=== PATIENT | female | born 1975 | race Caucasian/White ===

== ENCOUNTER 2019-03-28 11:24 | Emergency (ER) | payer OTHER, SELFPAY ==
[2019-03-28 11:25] VITALS: BP 108/75; PULSE 119; RESP 18; TEMP 36.6; O2SAT 98; BMI 27.3
--- NOTE | 2019-03-28 11:35 | RAD_ITS ---
STUDY: X-RAY CHEST REASON FOR EXAM: Female, 44 years old. Cough and chest pain. TECHNIQUE: Single AP portable view of the chest. COMPARISON: Comparison is made with prior study dated December 22, 2015. FINDINGS: Hyperinflation. Scattered calcified granulomas. No acute abnormality is seen. There is no demonstrated pleural abnormality. Normal size heart. Normal mediastinum and donna. Normal visualized pulmonary arteries. Normal visualized aortic arch and descending thoracic aorta. Normal visualized thoracic spine. Prior fusion of the lower cervical spine. Normal visualized ribs, clavicles, and shoulders. There is no demonstrated abnormality of the visualized soft tissue structures of the upper abdomen. RAD/Chest 1 View (Portable) IMPRESSION: Hyperinflation. No acute abnormality is seen. Electronically Signed: Daryl Bauer, at 12:32 EDT , Service support ,
--- NOTE | 2019-03-28 11:44 | ED.VIS.GEN ---
History of Present Illness Chief Complaint: Chest Pain Informant: Patient Onset: Days Context: Gradual Onset Timing: Continuous Current Severity: Moderate Maximum Severity: Severe Narrative: The patient presents to the emergency department with midepigastric pain into her chest. The patient states symptoms began Thursday morning. She states she has sharp pain just in her epigastric area that radiated up into her chest. She states it would come in waves but never fully go away. She was having a difficult time eating because of the pain. She was nauseated without vomiting. She states that she try to go to work yesterday, but was feeling short of breath because of the pain. The pain is not fully gone away. States is better today, but she is still having it. She does state that she drinks alcohol daily but has no history of pancreatitis. She denies any history of coronary vascular disease. She denies any fevers or chills. Prior similar symptoms: No Recent Illness/Hospitalization: No Past Medical History - Allergies and Home Meds Allergies/Adverse Reactions: Allergies hydrocodone Adverse Reaction (Verified 03/28/19 11:28) Upset Stomach morphine Adverse Reaction (Verified 03/28/19 11:28) Itching Penicillins [PCN] Adverse Reaction (Verified 03/28/19 11:28) Unknown Primary Care Physician: Deonte Sesay MD [Primary Care Provider] - Prior records reviewed: Yes Surgical History: no surgical history, appendectomy, cholecystectomy, hysterectomy Smoking Status: Current every day smoker Alcohol: Occasional Drugs: None Review of Systems General: Denies: Chills, Fever, Sweats Eyes: Denies: Visual changes - bilaterally, Diplopia ENT: Denies: Rhinorrhea, Sore throat Cardiovascular: Reports: Chest pain. Denies: Palpitations Respiratory: Reports: Dyspnea. Denies: Cough, Dyspnea on exertion Gastrointestinal: Reports: Abdominal pain, Nausea. Denies: Vomiting, Diarrhea, Melena, Hematochezia Genitourinary: Denies: Dysuria, Hematuria, Frequency Musculoskeletal: Denies: Back pain, Extremity Pain Skin: Denies: Rash, Wounds Neurological: Denies: Headache, Weakness, Numbness Physical Exam Vital Signs/Narrative: Vital Signs Temp Pulse Resp BP Pulse Ox 03/28/19 11:25 98 F 119 H 18 108/75 98 Inital Vital Signs reviewed: Yes General: Well nourished, Well developed, No Acute Distress Head: Normocephalic, Atraumatic Eyes: Perrl, EOMI ENT: Moist mucous membranes, No rhinorrhea Neck: Supple, Nontender Cardiovascular: Regular rate, Regular rhythm, No murmurs Respiratory: No distress, CTA bilaterally, Chest nontender Abdomen: Soft, Nondistended, Normal bowel sounds, No masses, Tender. Negative for: Guarding, Rebound tenderness Back: Nontender, Normal Inspection Extremities: Nontender, No edema Skin: Normal color, No rash Neurological: Alert, Oriented x3, Cranial nerves II-XII grossly intact, Normal Strength, Normal Sensation Psychological: Normal affect, Normal Mood Diagnostic/Tx/Re-eval Chest X-Ray - ED: 1 View, Normal, Heart, Chronic Changes, No Infiltrates - Rhythm Strip Rhythm Strip: Sinus Tach Rate: 107 Ectopy: None - EKG Initial EKG Interpretation: No Acute Injury Pattern, Sinus Tachycardia Prior: Unchanged - Medical Decision Making Clinical Impression(s) from Imaging Studies Chest X-Ray 03/28/19 11:35 IMPRESSION: Hyperinflation. No acute abnormality is seen. Electronically Signed: Daryl Bauer, at 12:32 EDT , Service support , Chest CTA 03/28/19 12:13 IMPRESSION: There is no evidence of pulmonary embolism. Mild degree of emphysematous change in the upper lobes. Increased markings at the lung bases suggestive of atelectasis. Calcified granuloma in the right lower lobe and possibly noncalcified granuloma in the right lower lobe. Electronically Signed: Daryl Bauer, at 13:15 EDT , Service support , Abnormal Lab Results 03/28/19 03/28/19 03/28/19 11:45 11:45 12:00 WBC 10.1 RBC 4.43 Hgb 14.8 Hct 43.4 MCV 98.0 MCH 33.4 H MCHC 34.1 RDW Std Deviation 46.2 H RDW Coeff of Stacey 12.9 Plt Count 425 MPV 8.7 Immature Gran % (Auto) 0.800 Neut % (Auto) 64.5 Lymph % (Auto) 25.0 [place] % (Auto) 6.7 Eos % (Auto) 2.4 Baso % (Auto) 0.6 Absolute Neuts (auto) 6.5 Absolute Lymphs (auto) 2.53 Nucleated RBC % 0 Sodium 141 Potassium 3.5 Chloride 115 H Carbon Dioxide 21.0 Anion Gap 5 BUN 8 Creatinine 0.85 Estim Creat Clear Calc 59.40 Est GFR (MDRD) Af Amer 93 Est GFR (MDRD) Non-Af 77 BUN/Creatinine Ratio 9.4 L Glucose 92 Calcium 8.6 Total Bilirubin 0.50 AST 9 L ALT 12 L Alkaline Phosphatase 75 Troponin I < 0.015 Total Protein 7.3 Albumin 3.6 Globulin 3.7 Albumin/Globulin Ratio 1.0 Lipase 90 Urine Color Yellow Urine Clarity Clear Urine pH 8.0 Ur Specific [place] 1.010 Urine Protein Negative Urine Glucose (UA) Normal Urine Ketones Negative Urine Occult Blood 25 H Urine Nitrite Negative Urine Bilirubin Negative Urine Urobilinogen Normal Ur Leukocyte Esterase Negative Urine RBC 0-5 SEEN Urine WBC 0 SEEN Ur Squamous Epith Cells 0-5 SEEN Urine Bacteria 0 SEEN Urine Mucus 0 SEEN The patient presents to the emergency department with substernal chest pain. It is not radiating. She also felt mildly short of breath. EKG was obtained patient arrival. Demonstrated sinus tachycardia. There is no acute ischemic change. The patient has had the symptoms constantly for the past 2 days. It is made worse with food. However, she was persistently tachycardic. The patient's pain was addressed and she was feeling improved. Her cardiac enzymes are normal. With constant pain for 2 days, I do feel this is effectively rule her out for acute coronary syndrome. I did obtain a CTA of the patient's chest. There is no evidence of pulmonary embolus or other dangerous process. Labs are unremarkable. Patient continues rest comfortably. I did review options with the patient. She wants to attempt outpatient therapy and I feel this is reasonable. Aside from smoking, she really has no risk factor for coronary vascular disease. I am going to treat her with Carafate and antiemetics. She will be discharged home. Impression 1. Chest pain 2. Gastritis ED Disposition - Plan for ED Patient: Instructions: CHEST PAIN, Uncertain Cause Prescriptions: Dicyclomine HCl [Bentyl] 20 mg PO TIDAC #20 cap Prescription Printed Sucralfate [Carafate] 1 gm PO 4X/DAY #60 tab Prescription Printed Ondansetron [Zofran Odt] 4 mg PO Q8H PRN PRN #10 tab PRN Reason: Nausea Prescription Printed Referrals: Deonte Sesay MD [Primary Care Provider] -
[2019-03-28] MEDS: 0.9% Normal Saline 1,000 ML 1000 ML IV (11:50)
[2019-03-28] MEDS: Ondansetron 4 MG/2 ML Vial IV (11:50)
[2019-03-28] MEDS: HYDROmorphone 1 MG/ML Syringe IV (11:50)
[2019-03-28 11:54] LABS: Absolute Lymphocyte Count 2.53 X10^3/uL (0.83-4.51); Absolute Neutrophil Count 6.5 X10^3/uL (2.0-7.7); Basophil# 0.06 X10^3/uL; Basophil% 0.6 % (0-1); Eosinophil# 0.24 X10^3/uL; Eosinophils% 2.4 % (0-5); Hematocrit 43.4 % (37-47); Hemoglobin 14.8 g/dL (12.0-15.0); Lymphocyte # 2.53 X10^3/ul (4.0); Mean Corp Hgb Conc 34.1 g/dL (32-36); Mean Corpuscular Hgb 33.4 pg (27.0-32.0); Mean Platelet Vol. 8.7 fl (6.2-12.0); Monocyte# 0.68 X10^3/uL; Monocyte% 6.7 % (0-10); NRBC Flagged by Analyzer 0 % (0-5); Neutrophil # 6.51 X10^3/uL (2.7-7.7); Neutrophil % 64.5 % (47-70); Platelet Count 425 K/mm3 (150-450); RBC Distribution Width CV 12.9 % (11.6-14.6); RBC Distribution Width SD 46.2 fl (35.1-43.9); Red Blood Count 4.43 M/mm3 (4.2-5.4); White Blood Count 10.1 K/mm3 (4.4-11.0)
[2019-03-28 12:07] VITALS: BP 114/93; PULSE 106; RESP 29; O2SAT 99
[2019-03-28 12:11] LABS: AST(SGOT) 9 U/L (15-37); Alanine Aminotransfer ALT/SGPT 12 U/L (13-56); Albumin, Serum 3.6 g/dL (3.2-5.0); Alkaline Phosphatase 75 U/L (45-117); Anion Gap 5 (5-15); BUN 8 mg/dL (7-18); BUN/Creat Ratio 9.4 RATIO (10-20); Calcium,Total 8.6 mg/dL (8.5-10.1); Chloride 115 mmol/L (98-107); Creatinine, Serum 0.85 mg/dL (0.55-1.02); EST Glomerular Filtration Rate 77 mL/min (>60); Est Glom Filt Rate - Afr Amer 93 mL/min (>60); Globulin 3.7 g/dL (2.2-4.2); Glucose 92 mg/dL (74-106); Lipase 90 U/L (73-393); Potassium 3.5 mmol/L (3.5-5.1); Protein, Total 7.3 g/dL (6.4-8.2); Sodium Level 141 mmol/L (136-145)
--- NOTE | 2019-03-28 12:13 | CT_ITS ---
STUDY: CTA CHEST REASON FOR EXAM: Female, 44 years old. Sharp, stabbing chest pains. RADIATION DOSAGE (If Supplied By Facility): CTDIvol = ( 4.79 ) mGy, DLP = ( 158.04 ) mGycm TECHNIQUE: The examination was performed with the intravenous administration of 75 IV Isovue 370. Post-processing of the angiographic images was performed, with multiplanar reformation and 3D reconstruction. Individualized dose optimization techniques were used for this CT. COMPARISON: None. FINDINGS: Normal enhancement of the main pulmonary artery and right and left pulmonary arteries. Normal enhancement of the bilateral peripheral pulmonary arteries. There is no demonstrated pulmonary embolism. Normal thoracic aorta and visualized great vessels. There is no demonstrated aortic dissection. Normal heart and pericardium. Normal mediastinum. Normal hilar regions. Normal visualized trachea and bronchi. The lungs are well expanded. Mild degree of emphysematous changes in the upper lobes. Mild degree of increased linear markings at the lung bases suggestive of a linear atelectasis. There is a 5 mm noncalcified nodule in the lateral peripheral aspect of the right lower lobe as seen on axial image #86. This may represent a noncalcified granuloma. 5 mm calcified granuloma in the superior segment of the right lower lobe. Normal pleura. Normal chest wall structures. There are degenerative changes of thoracic spine. Thickening of both adrenal glands suggestive of hyperplasia. Small hiatal hernia. CT/CTA Chest W/WO Contrast IMPRESSION: There is no evidence of pulmonary embolism. Mild degree of emphysematous change in the upper lobes. Increased markings at the lung bases suggestive of atelectasis. Calcified granuloma in the right lower lobe and possibly noncalcified granuloma in the right lower lobe. Electronically Signed: Daryl Bauer, at 13:15 EDT , Service support ,
[2019-03-28 12:20] LABS: Bacteria 0 SEEN /hpf (None Seen); Mucous, Urine 0 SEEN /hpf (<or=2+); White Blood Cells 0 SEEN /hpf (0-5)
[2019-03-28 12:28] LABS: Color, Urine Yellow (Yellow); Glucose, Dipstick Normal (Normal); Ketone-Dipstick Negative (Negative); Leukocyte Esterase-Dipstick Negative /ul (Negative); Nitrite-Dipstick Negative (Negative); Occult Blood-Urine 25 /ul (Negative); Protein-Dipstick Negative (Negative); Urine Bilirubin Dipstick Negative (Negative); Urine Clarity Clear (Clear); Urine Urobilinogen Normal (Normal)
[2019-03-28 12:38] LABS: Red Blood Cells-Urine 0-5 SEEN /hpf (0-5); Squamous Epithelial Cells - UA 0-5 SEEN /hpf (5-10)
--- NOTE | 2019-03-28 12:42 | EKG12_ITS ---
Test Reason : CP Blood Pressure : / mmHG Vent. Rate : 107 BPM Atrial Rate : 107 BPM P-R Int : 128 ms QRS Dur : 084 ms QT Int : 358 ms P-R-T Axes : 078 030 050 degrees QTc Int : 477 ms Sinus tachycardia Indeterminate axis Low Voltage QRS (Limb Leads) Borderline ECG Confirmed by ELLY AMADO, MARCOS ([id number]), online editor MIKE SMITH ([id number]) on 03/30/2019 8:56:54 AM Referred By: MERYL/AMAIRANI Confirmed By:MARCOS SANABRIA MD
== END 2019-03-28 14:21 | disposition home or self-care (01) ==
LOC: ED 11:50
PROVIDERS: Emergency Provider Emergency Medicine; Family Provider Orthopaedic Surgery; PCP Orthopaedic Surgery
DX: R07.2 Precordial pain (principal); K29.70 Gastritis, unspecified, without bleeding; R00.0 Tachycardia, unspecified; F17.200 Nicotine dependence, unspecified, uncomplicated; Z79.899 Other long term (current) drug therapy; Z88.5 Allergy status to narcotic agent; Z88.0 Allergy status to penicillin
CPT/HCPCS: 71045; 71275; 80053; 81001; 83690; 84484; 85025; 93005; 96361; 96374; 96375; 99285; J7030; Q9967; A4216; J2405

== ENCOUNTER → 2019-05-12 10:08 | Outpatient (CLI) | payer OTHER, SELFPAY ==
[2019-05-10 14:39] VITALS: BMI 24.0
[2019-05-12 12:49] LABS: T4 Free Direct 1.01 ng/dL (0.76-1.46); Thyroid Stim Hormone (TSH) 1.16 uIU/mL (0.358-3.74)
== END ==
PROVIDERS: Family Provider Orthopaedic Surgery; PCP Internal Medicine; Visit Provider Internal Medicine
DX: R00.0 Tachycardia, unspecified (principal)
CPT/HCPCS: 36415; 84439; 84443

== ENCOUNTER → 2019-05-19 11:12 | Outpatient (CLI) | payer OTHER, SELFPAY ==
[2019-05-16 11:14] VITALS: BMI 24.2
== END ==
PROVIDERS: Family Provider Internal Medicine; PCP Internal Medicine; Referring Provider Specialist; Visit Provider Specialist
DX: R00.2 Palpitations (principal)
CPT/HCPCS: 93225; 93226

== ENCOUNTER → 2019-05-26 09:54 | Outpatient (CLI) | payer OTHER, SELFPAY ==
[2019-05-16 11:14] VITALS: BMI 24.2
--- NOTE | 2019-05-26 09:55 | ECHOD_ITS ---
Reason For Study: CHEST PAIN Procedure This was a 2D Doppler, Color Flow transthoracic echocardiogram. The study was technically difficult. Due to poor parasternal accoustic windows. Exam performed in department. Left Ventricle Normal LV size. The estimated ejection fraction is 55 %. No evidence for diastolic dysfunction. No regional wall motion abnormalities noted. Right Ventricle Normal RV size. Normal systolic function. Atria Normal left atrium. Normal right atrium. No doppler evidence for ASD. Mitral Valve There is no mitral valve stenosis. No mitral valve insufficiency. Tricuspid Valve There is no tricuspid stenosis. Trivial tricuspid valve insufficiency. Pulmonary artery systolic pressure is 30 mmHg. Aortic Valve Trisinus/trileaflet aortic valve. There is no aortic stenosis. No aortic valve insufficiency. Pulmonic Valve There is no pulmonic valvular stenosis. No pulmonic valve insufficiency. Great Vessels Normal aortic root. Pericardium/Pleural No pericardial effusion. MMode/2D Measurements & Calculations LVIDd: 4.2 cm IVSd: 0.84 cm Ao root diam: 3.1 cm LVIDs: 3.2 cm LVPWd: 4.3 cm RVDd: 3.0 cm FS: 24.3 % LAV(MOD-bp): 31.9 ml LA A4 area: 12.0 cm2 LA dimension(2D): 2.7 cm LAV(MOD-bp) Indexed: 20.9 ml/m2 LAV(MOD-sp2): 32.0 ml LAV(MOD-sp4): 30.0 ml RA A4 area: 10.8 cm2 Time Measurements MV dec time: 0.13 sec Doppler Measurements & Calculations MV E max rj: 86.1 cm/sec Lat Peak E' Rj: 11.2 cm/sec Med Peak E' Rj: 9.9 cm/sec MV A max rj: 51.0 cm/sec E/E' lat: 7.7 E/E' med: 8.7 MV E/A: 1.7 Ao V2 max: 100.4 cm/sec LV V1 max: 83.6 cm/sec PA V2 max: 78.8 cm/sec Ao max P.0 mmHg LV V1 max P.7 mmHg TR max rj: 258.2 cm/sec TR max P.7 mmHg Interpretation Summary The estimated ejection fraction is 55 %. No evidence for diastolic dysfunction. Trivial tricuspid valve insufficiency. Pulmonary artery systolic pressure is 30 mmHg. Ordering Physician: Toni Butler Referring Physician: Toni Butler Performed By: Leonora Obregon, [facility], RVT
--- NOTE | 2019-06-02 13:41 | STRESSREP_ITS ---
Stress Test Report Date: 05/26/2019 Procedure: Exercise tolerance test Indications: Chest pain Consent: Per the patient Procedure: The patient exercised on a Devon protocol for 6 minutes achieving a peak heart rate of 162 bpm (93 % predicted maximal heart rate) with a peak blood pressure 130/70 mmHg and a peak MET capacity of approximately 7 mET's. The baseline ECG demonstrated normal sinus rhythm. The peak exercise ECG demonstrated sinus tachycardia with about half a millimeter upsloping to horizontal ST depressions in the inferior and lateral leads. [There were no cardiac dysrhythmias pretest, during exercise, or recovery]. The functional capacity was considered decreased for age. Patient had chest pain early in the recovery period which improved later in recovery. The examination was discontinued secondary to dyspnea. Impression: 1. Technically adequate (percent predicted maximal heart rate greater than 85%) exercise tolerance test 2. Stress test is positive for exercise-induced chest pain. 3. Stress test test is negative for exercise-induced EKG changes of ischemia. 4. Functional capacity is decreased for age. This note was generated with [employer] software. It may contain incorrect words, spelling, and punctuation that were not noted in checking the note before signing.
== END ==
PROVIDERS: Family Provider Internal Medicine; PCP Internal Medicine; Referring Provider Specialist; Visit Provider Specialist
DX: R07.9 Chest pain, unspecified (principal); R00.0 Tachycardia, unspecified; R00.2 Palpitations
CPT/HCPCS: 93017; 93306

== ENCOUNTER 2019-06-10 18:22 | Emergency (ER) | payer OTHER, SELFPAY ==
[2019-05-16 11:14] VITALS: BMI 24.2
[2019-06-10 18:23] VITALS: BP 112/83; PULSE 104; RESP 20; TEMP 36.6; O2SAT 95; BMI 24.3
--- NOTE | 2019-06-10 18:30 | RAD_ITS ---
STUDY: X-RAY CHEST REASON FOR EXAM: Female, 44 years old. Cough TECHNIQUE: PA and lateral COMPARISON: March 28, 2019 FINDINGS: The lungs are clear and expanded. Tiny well rounded nodule in the right lower lobe There is no demonstrated pleural abnormality. Normal size heart. Normal mediastinum and donna. Normal visualized pulmonary arteries. Normal visualized aortic arch and descending thoracic aorta. Dorsal spine demonstrates mild spondylosis. Normal visualized ribs, clavicles, and shoulders. Postop change status post cervical fusion There is no demonstrated abnormality of the visualized soft tissue structures of the upper abdomen. No significant change since prior study RAD/Chest PA and Lateral IMPRESSION: Stable appearance to tiny nodule in the right lower lobe. No acute cardiopulmonary pathology Electronically Signed: Roderick Juarez MD at 18:45 EDT , Service support ,
--- NOTE | 2019-06-10 19:35 | ED.RN ---
PT REPORTS TTHAT SHE IS TIRED OF WAITING IN THE LOBBY, AND SHE WILL SEE HER FAMILY DOCTOR NEXT WEEK. PT LEAVES WITHOUT BEING SEEN AT 1936.
[2019-06-10 19:38] VITALS: TEMP 36.6
== END 2019-06-10 20:01 | disposition left against medical advice (07) ==
LOC: ED 19:44
PROVIDERS: Emergency Provider Emergency Medicine; Family Provider Internal Medicine; PCP Internal Medicine
DX: R05 Cough (principal); Z53.21 Procedure and treatment not carried out due to patient leaving prior to being seen by health care provider
CPT/HCPCS: 71046; 99281

== ENCOUNTER → 2019-06-17 13:36 | Outpatient (CLI) | payer OTHER, SELFPAY ==
[2019-06-15 10:48] VITALS: BMI 24.4
[2019-06-17 14:44] LABS: Absolute Lymphocyte Count 2.86 X10^3/uL (0.83-4.51); Basophil# 0.06 X10^3/uL; Basophil% 0.7 % (0-1); Eosinophil# 0.17 X10^3/uL; Eosinophils% 1.9 % (0-5); Hematocrit 42.1 % (37-47); Hemoglobin 13.9 g/dL (12.0-15.0); Lymphocyte # 2.86 X10^3/ul (4.0); Lymphocyte % 32.4 % (19-41); Mean Corpuscular Hgb 32.6 pg (27.0-32.0); Mean Corpuscular Volume 98.8 fL (81-99); Mean Platelet Vol. 9.3 fl (6.2-12.0); Monocyte# 0.73 X10^3/uL; Monocyte% 8.3 % (0-10); NRBC Flagged by Analyzer 0 % (0-5); Neutrophil # 4.98 X10^3/uL (2.7-7.7); Neutrophil % 56.2 % (47-70); Platelet Count 386 K/mm3 (150-450); RBC Distribution Width CV 13.1 % (11.6-14.6); RBC Distribution Width SD 46.9 fl (35.1-43.9); Red Blood Count 4.26 M/mm3 (4.2-5.4); White Blood Count 8.8 K/mm3 (4.4-11.0)
[2019-06-17 14:47] LABS: International Normalized Ratio 1.1; Prothrombin Time (Protime)PT. 13.8 SECONDS (11.7-14.9)
[2019-06-17 14:48] LABS: Partial Thromboplast Time 28.6 Seconds (24.1-36.2)
[2019-06-17 15:12] LABS: Anion Gap 9 (5-15); BUN 14 mg/dL (7-18); BUN/Creat Ratio 18.6 RATIO (10-20); Calcium,Total 8.8 mg/dL (8.5-10.1); Chloride 110 mmol/L (98-107); Creatinine, Serum 0.75 mg/dL (0.55-1.02); EST Glomerular Filtration Rate 88 mL/min (>60); Est Glom Filt Rate - Afr Amer 107 mL/min (>60); Glucose 79 mg/dL (74-106); Potassium 3.9 mmol/L (3.5-5.1); Sodium Level 143 mmol/L (136-145)
== END ==
PROVIDERS: Family Provider Internal Medicine; PCP Internal Medicine; Referring Provider Specialist; Visit Provider Specialist
DX: R07.9 Chest pain, unspecified (principal)
CPT/HCPCS: 36415; 80048; 85025; 85610; 85730

== ENCOUNTER 2019-06-23 08:49 | Day surgery (SDC) | payer OTHER, SELFPAY ==
[2019-06-15 10:48] VITALS: BMI 24.4
[2019-06-23 09:09] VITALS: BMI 23.4
--- NOTE | 2019-06-23 09:59 | HP.PCM_ITS ---
History and Physical Date of Admission: 06/23/19 History of Present Illness Details: 05/16/2019:44-year-old female referred to us because of palpitations, chest heaviness, fatigue. She had a Holter monitor in 2015 which showed sinus tachycardia with no significant other arrhythmias. She had a 2D echo at that time which was unremarkable. Since then her symptoms have progressively been getting worse. Dr. Singh ordered a 2D echo and thyroid profile. TSH and free T4 are Within normal limits. Patient's chest discomfort happens often with ex ertion and sometimes at rest. It is not always associated with the palpitations. However along with the palpitations also she gets some chest discomfort. Palpitations happen on a daily basis. 06/15/2019: Patient's echo was unremarkable, 48-hour Holter did not reveal any significant arrhythmias. Stress test however was positive for exercise-induced chest pain and there were borderline ST-T changes with exercise. Patient continues to have chest heaviness with exertion. Allergies hydrocodone Adverse Reaction (Verified 06/15/19 10:50) Upset Stomach morphine Adverse Reaction (Verified 06/15/19 10:50) Itching Penicillins [PCN] Adverse Reaction (Verified 06/15/19 10:50) Unknown Medications Omeprazole 20 mg PO BID 03/28/19 [History Confirmed 06/15/19] cycloBENZAPRine HCl [Flexeril] 10 mg PO TID PRN PRN 03/28/19 [History Confirmed 06/15/19] oxycodone-acetaminophen 7.5 mg-325 mg tablet 1 tab PO Q6H PRN 05/10/19 [History Confirmed 06/15/19] topiramate 50 mg tablet 50 mg PO BID 05/10/19 [History Confirmed 06/15/19] ibuprofen 200 mg tablet 200 mg PO Q6H PRN 05/16/19 [History Confirmed 06/15/19] naproxen sodium 220 mg tablet 220 mg PO BID PRN 05/16/19 [History Confirmed 06/15/19] doxycycline hyclate 100 mg tablet 100 mg PO BID #20 tab 06/13/19 [Rx Confirmed 06/15/19] Ejection fraction %: 55 to 59 PFSH Medical History Inappropriate sinus tachycardia (Chronic) Neuropathy (Chronic) GERD (gastroesophageal reflux disease) (Chronic) Frequent headaches (Chronic) Back problem (Chronic) Arthritis (Chronic) Tobacco abuse (Chronic) Surgical History History of appendectomy (Resolved) History of cholecystectomy (Resolved) History of hysterectomy (Resolved) History of neck surgery (Resolved) Family History Father Heart disease [place] Cancer Kidney & Bladder Skin cancer Other Arthritis High cholesterol Hypertension Myocardial infarction Social History (Updated 06/15/19 @ 11:37 by Toni Butler MD) Smoking Status: Current every day smoker Tobacco: How many years used: 10 alcohol intake: never substance use type: does not use caffeine: Yes Type: coffee Number of servings: 2 what type of physical activity do you participate in: none ROS Const Const: Positive for fatigue (related to respiratory illness) and weakness (related to respiratory illness); negative for headache(s), frequent falls, difficulty sleeping or excessive sweating Eyes Eyes: Negative for loss of peripheral vision, transient loss of vision, blurry vision, double vision or tunnel vision ENT ENT: Negative for headache(s), dizziness, Nosebleed/epistaxis or balance problems Cardio Chest Pain: Yes Frequency: daily Character: other (heaviness) Location: mid sternal Palpitations: No Edema: None Muscle aches with walking: None Resp Respiratory: Positive for Cough; negative for SOB with activity, SOB at rest, SOB orthopnea\SOB lying down or paroxysmal nocturnal dyspnea GI GI: Negative nausea, vomiting, heartburn or black,tarry stools : Negative for hematuria Musc Musc: Negative for muscle aches/ myalgia, muscle weakness, joint pain or balance problems Skin Skin: Negative non-healing lesions, rash or unusual bruising Neuro Neuro: Positive for weakness (related to respiratory illness); negative for dizziness, lightheadedness, near syncope, syncope, frequent falls, headache(s), blurry vision, double vision or lack of coordination Leo Hematologic/Lymphatic: Negative for easy bleeding or easy bruising Endo Endo: Positive for fatigue (related to respiratory illness); negative for excessive sweating or increased thirst/drinking Psych Psych: Negative for anxiety or depression Allergy Allergy/Immunology: Negative for hives, Negative for rash Cardiology Exam Const Appearance: cooperative; negative acute distress Nutritional Appearance: well nourished Head Head: normocephalic and atraumatic Ears: hearing grossly normal bilaterally Nose: external nose normal Face and Sinus: face symmetric Mouth: moist mucous membranes Teeth and gingiva: fair dentition Eyes General: appearance normal, both eyes and all related structures Eyelids: eyelids normal Conjunctivae: conjunctivae normal Neck Neck: trachea midline and no JVD Chest Chest inspection: symmetric chest movement; negative pursed lip breathing Auscultation: Bilateral: Clear to Auscultation Cardio Rate: regular rate Rhythm: regular rhythm Heart sounds: S1 normal and S2 normal No Murmurs GI GI: normal to inspection Neuro General: alert, awake and oriented x3 Gait: Negative ataxic Skin Skin: no rashes or lesions noted; negative atrophy or jaundice Extremities Pulses: Normal: Right Posterior Tibial Pulse, Left Posterior Tibial Pulse Lower Extremity Edema: None: Bilateral Musculoskel Musculoskeletal: No joint tenderness Psych Psychological: normal affect Assessment & Plan 1. Chest pain, unspecified type R07.9 Some aspects of this chest pain are concerning for coronary artery disease origin. Patient does have risk factors for this. She does have some baseline ST changes in the EKG that could result in false positive test if the EKG stress test alone is performed. So I will go ahead and order a treadmill nuclear stress test. Plan 06/23/19: Patient continues to have chest heaviness on exertion. She had this during stress testing as well. Her exercise capacity is decreased for age and she had borderline ST-T changes as well. We will proceed with coronary angiography to evaluate this further. Risks and benefits discussed with the patient and patient wishes to proceed. 2. Sinus tachycardia R00.0 Plan Will monitor at this time. 48-hour Holter did not reveal any significant SVT, V. tach or pauses. C
--- NOTE | 2019-06-23 12:29 | CL.D_ITS ---
Patient Name: DAVID ULLOA Study Date: 06/23/2019 Performing: Micheline Butler MD Ht: 60 inches 152.4 cm : 1975 Wt: 120 lbs 54.43 kg Age: 44 Gender: female BSA: 1.5 PROCEDURE(S) PERFORMED SN25-EBF/COR/LV CLINICAL PROFILE AND INDICATIONS Indications: Suspected CAD Heart Failure: None Stress/Imaging Standard Exercise Stress Test: Yes Result: Indeterminant CAD Presentations: Unstable angina. CONCLUSIONS Normal coronary arteries Normal LV size, wall motion,and systolic function RECOMMENDATIONS DESCRIPTION OF PROCEDURE The patient arrived to the procedure lab. The risks and benefits of the procedure as well as a full d escription of our services here and current unavailability of surgical backup were fully explained to the patient and/or their significant other prior to the catheterization. The Timeout was completed, verifying the correct patient and procedure. The patient's procedural site was prepped and draped in the usual fashion. Local anesthetic was given subcutaneously to right radial region with Lidocaine 2% . Using a modified Seldinger technique, arterial access was obtained via the right radial artery, a 6 Fr sheath was inserted. Left Coronary Artery selective angiography was performed in multiple views u sing a 5 Fr. JL3.5 catheter. Left Ventriculography was performed in PRIETO projection using a 5 Fr. JR4. LV to AO pullback pressures were then recorded. Right Coronary Artery selective angiography was then performed in multiple views using a 5 Fr. JR 4 catheter.The arterial sheath was pulled and a TR Band was applied for hemostasis CORONARY ANGIOGRAPHY DOMINANCE: Right Dominant LEFT HEART ASSESSMENT Left Ventricular Ejection Fraction: by LV Gram 55 % Normal Left Ventricular systolic function LEFT MAIN: Angiographically normal LEFT ANTERIOR DESCENDING ARTERY: Angiographically normal CIRCUMFLEX ARTERY: Angiographically normal RIGHT CORONARY ARTERY: Angiographically normal VALVE FINDINGS: No Aortic Valve Stenosis No Mitral Insufficency COMPLICATIONS No Complications PROCEDURE MEDICATIONS Versed 1 mg IV Versed 1 mg IV Oxygen: 2 L/min via nasal cannula Heparin given IA 06/23/2019 10:37:09 Verapamil 2.5mg, Ntg 100mcgs, 3000 units of Heparin given IA 06/23/2019 10:37:09 SUMMARY OF HEMODYNAMIC DATA Time AIR REST ECG 09:12:32 LV 118/-18, 4 10:39:12 LV 118/-18, 6 10:39:19 LVp 113/-14, 7 10:39:38 AOp 119/76 (96) 10:39:43 LV 98/-3, 4 10:44:17 Signed By Micheline Butler MD On 06/23/2019 12:28:27 PM Micheline Butler MD
== END 2019-06-23 13:30 | disposition home or self-care (01) ==
LOC: CLSP 08:49
PROVIDERS: Family Provider Internal Medicine; PCP Internal Medicine; Referring Provider Specialist; Visit Provider Specialist
DX: I25.110 Atherosclerotic heart disease of native coronary artery with unstable angina pectoris (principal); R00.2 Palpitations; R00.0 Tachycardia, unspecified; G62.9 Polyneuropathy, unspecified; M19.90 Unspecified osteoarthritis, unspecified site; K21.9 Gastro-esophageal reflux disease without esophagitis; F17.200 Nicotine dependence, unspecified, uncomplicated; Z88.0 Allergy status to penicillin; Z88.5 Allergy status to narcotic agent
CPT/HCPCS: 93458; 99152; 99153; J7040; Q9967; C1769; C1894

== ENCOUNTER → 2020-11-07 | Outpatient (CLI) | payer OTHER, SELFPAY ==
[2020-11-06 14:56] VITALS: BMI 26.4
[2020-11-07 11:22] LABS: Bacteria 0 SEEN /hpf (None Seen); Mucous, Urine 0 SEEN /hpf (<or=2+); Red Blood Cells-Urine 0 SEEN /hpf (0-5); White Blood Cells 0 SEEN /hpf (0-5)
[2020-11-07 12:22] LABS: Color, Urine Yellow (Yellow); Glucose, Dipstick Normal (Normal); Ketone-Dipstick Negative (Negative); Leukocyte Esterase-Dipstick Negative /ul (Negative); Nitrite-Dipstick Negative (Negative); Occult Blood-Urine Negative /ul (Negative); Protein-Dipstick Negative (Negative); Urine Bilirubin Dipstick Negative (Negative); Urine Clarity Clear (Clear); Urine Urobilinogen Normal (Normal)
[2020-11-07 12:29] LABS: Squamous Epithelial Cells - UA 0-5 SEEN /hpf (5-10)
== END | disposition home or self-care (01) ==
LOC: LABSPEC 11:21
PROVIDERS: PCP Internal Medicine; Referring Provider Internal Medicine; Visit Provider Internal Medicine
DX: R10.9 Unspecified abdominal pain (principal)
CPT/HCPCS: 81001

== ENCOUNTER 2021-07-01 08:21 | Emergency (ER) | payer OTHER, SELFPAY ==
[2021-07-01 08:21] VITALS: BP 101/86; PULSE 119; RESP 20; TEMP 36.2; O2SAT 100; BMI 24.4
[2021-07-01 08:37] VITALS: BP 102/78; PULSE 100; RESP 16; O2SAT 98
[2021-07-01 08:53] LABS: Absolute Lymphocyte Count 1.34 X10^3/uL (0.83-4.51); Absolute Neutrophil Count 3.8 X10^3/uL (2.0-7.7); Basophil# 0.02 X10^3/uL; Basophil% 0.4 % (0-1); Eosinophil# 0.01 X10^3/uL; Eosinophils% 0.2 % (0-5); Hematocrit 43.2 % (37-47); Lymphocyte # 1.34 X10^3/ul (0.83-4.51); Lymphocyte % 23.6 % (19-41); Mean Corp Hgb Conc 34.7 g/dL (32-36); Mean Corpuscular Hgb 32.6 pg (27.0-32.0); Mean Corpuscular Volume 93.9 fL (81-99); Mean Platelet Vol. 9.2 fl (6.2-12.0); Monocyte# 0.42 X10^3/uL; Monocyte% 7.4 % (0-10); NRBC Flagged by Analyzer 0 % (0-5); Neutrophil # 3.83 X10^3/uL (2.7-7.7); Neutrophil % 67.5 % (47-70); POSITIVE MORPHOLOGY YES; Platelet Count 250 K/mm3 (150-450); RBC Distribution Width CV 13.2 % (11.6-14.6); RBC Distribution Width SD 45.3 fl (35.1-43.9); White Blood Count 5.7 K/mm3 (4.4-11.0)
[2021-07-01 08:55] VITALS: O2SAT 98
[2021-07-01 08:55] LABS: Differential Indicated SCAN CRITERIA MET
[2021-07-01 09:06] LABS: Anion Gap 5 (5-15); BUN 11 mg/dL (7-18); BUN/Creat Ratio 17.3 RATIO (10-20); Calcium,Total 7.8 mg/dL (8.5-10.1); Chloride 110 mmol/L (98-107); Creatinine, Serum 0.64 mg/dL (0.55-1.02); EST Glomerular Filtration Rate 106 mL/min (>60); Est Glom Filt Rate - Afr Amer 128 mL/min (>60); Estimated Creatinine Clearance 77.22 ml/min; Glucose 99 mg/dL (74-106); Potassium 3.1 mmol/L (3.5-5.1); Sodium Level 137 mmol/L (136-145)
[2021-07-01 09:20] VITALS: BP 105/77; PULSE 111; RESP 18; TEMP 36.3; O2SAT 98
[2021-07-01 09:22] LABS: Reactive Lymphocyte RARE
--- NOTE | 2021-07-01 09:22 | EDS_ITS ---
HPI History of Present Illness Chief Complaint: Shortness of Breath Informant: patient Onset/Context/Timing Onset: Days (4) Context: Sudden Onset Timing: Continuous Quality: Sharp Location: Upper abdomen Worsened by: Eating Relieved by: Nothing Narrative Narrative: Patient presents with upper abdominal pain that has been getting worse over the past 4 days. Patient states her pain is sharp. Patient states it is worse over her upper abdomen. Patient states it is worse with eating. Patient admits to some nausea, vomiting, and diarrhea. Patient states her diarrhea is watery. Patient denies any hematemesis or coffee-ground emesis. Patient denies any cough, chest pain, shortness of breath, fevers, or urinary symptoms. Patient admits to some subjective chills. Patient states she tested positive for COVID-19 approximately 9 days ago. [facility] Medical History (Updated 07/01/21 @ 10:[address] Teto Gardner, DO) Arthritis Back problem Frequent headaches GERD (gastroesophageal reflux disease) Inappropriate sinus tachycardia Neuropathy Tobacco abuse Home Medications cyclobenzaprine 10 mg PO TID PRN PRN 03/28/19 [History Last Taken Unknown] omeprazole 20 mg PO BID 03/28/19 [History Last Taken 06/23/19] oxycodone-acetaminophen 7.5 mg-325 mg tablet 1 tab PO Q6H PRN 05/10/19 [History Last Taken Unknown] topiramate 50 mg tablet 50 mg PO BID 05/10/19 [History Last Taken Unknown] ibuprofen 200 mg tablet 200 mg PO Q6H PRN 05/16/19 [History Last Taken Unknown] naproxen sodium 220 mg tablet 220 mg PO BID PRN 05/16/19 [History Last Taken Unknown] ondansetron 4 mg PO Q8H PRN PRN #10 tab 07/01/21 [Rx Last Taken Unknown] Allergy/AdvReac Type Severity Reaction Status Date / Time hydrocodone AdvReac Upset Verified 07/01/21 08:23 Stomach morphine AdvReac Itching Verified 07/01/21 08:23 Penicillins [PCN] AdvReac Unknown Verified 07/01/21 08:23 Family History Father Heart disease [place] Cancer Kidney & Bladder Skin cancer Other Arthritis High cholesterol Hypertension Myocardial infarction Surgical History History of appendectomy History of cholecystectomy History of hysterectomy History of neck surgery Social History Smoking Status: Current every day smoker tobacco type: cigarettes and smokeless tobacco Tobacco: How many years used: 10 alcohol intake: never substance use type: does not use caffeine: Yes Type: coffee Number of servings: 2 what type of physical activity do you participate in: none ROS ROS ED Constitutional Constitutional ED: Reports chills and subjective; Denies fever(s) Eyes Eyes: Denies blurry vision or change in vision ENT ENT ED: Denies rhinorrhea or sore throat Cardiovascular Cardiovascular: Denies chest pain or palpitations Respiratory/Chest Respiratory/Chest: Denies cough or dyspnea Gastrointestinal Gastrointestinal: Reports diarrhea, nausea and vomiting Genitourinary Genitourinary ED: Denies dysuria or hematuria Musculoskeletal Musculoskeletal: Reports arthralgias and back pain; Denies neck pain Integumentary Denies abscess or rash Neurologic Neurologic: Reports headache(s); Denies weakness Allergic/Immunologic Allergic/Immunologic ED: Denies mouth swelling or urticaria EXAM Physical Exam Const Vital Signs: 07/01/21 08:21 07/01/21 08:37 07/01/21 08:55 Temperature 97.2 F L Temperature Source Temporal Pulse Rate 119 H 100 Respiratory Rate 20 H 16 Respiratory Effort Normal Respiratory Depth Normal Respiratory Pattern Normal Blood Pressure 101/86 H 102/78 Blood Pressure Mean 91 86 Pulse Ox 100 98 Oxygen Delivery Method Room Air Room Air Room Air 07/01/21 09:20 Temperature 97.3 F L Temperature Source Oral Pulse Rate 111 H Respiratory Rate 18 Respiratory Effort Respiratory Depth Respiratory Pattern Blood Pressure 105/77 Blood Pressure Mean 86 Pulse Ox 98 Oxygen Delivery Method Room Air Positive well nourished and well developed General Appearance ED: well developed HEENT Reports moist mucous membranes Neck supple and no JVD Resp normal respiratory effort and clear to auscultation bilaterally Cardio regular rate, regular rhythm and no murmurs GI normal to inspection, nondistended, normoactive bowel sounds Palpation: soft and tender epigastric, LUQ and RUQ; Negative for guarding or rebound tenderness present Extremity normal to inspection General Extremety ED: Negative for edema or tenderness General Extremity: Negative for edema Neuro oriented x3, CN's II-XII intact bilaterally and no sensory deficits noted Sensorium / Orientation: alert Motor Exam: strength 5/5 throughout Psych mental status grossly normal Skin no rashes or lesions noted MDM MDM MDM Narrative Medical decision making narrative: Patient was given IV fluids and Tylenol initially. CBC was within normal limits. Basic metabolic profile showed a hypokalemia of 3.1. Hepatic profile was essentially within normal limits. Lipase was normal. Patient was given a dose of oral potassium here. Patient is feeling better on reevaluation. Patient was given prescription for Zofran. Patient was instructed to continue her omeprazole as prescribed. Patient was instructed to follow-up with her primary care physician in 5 to 7 days. Patient understood and was agreeable with the plan. All questions were answered. Lab Data Attestation: I reviewed the patient's lab results. Labs: Laboratory Results - last 24 hr 07/01/21 07/01/21 07/01/21 08:45 08:45 08:45 WBC 5.7 RBC 4.60 Hgb 15.0 Hct 43.2 MCV 93.9 MCH 32.6 H MCHC 34.7 RDW Std Deviation 45.3 H RDW Coeff of Stacey 13.2 Plt Count 250 MPV 9.2 Immature Gran % (Auto) 0.900 Neut % (Auto) 67.5 Lymph % (Auto) 23.6 [place] % (Auto) 7.4 Eos % (Auto) 0.2 Baso % (Auto) 0.4 Absolute Neuts (auto) 3.8 Absolute Lymphs (auto) 1.34 Nucleated RBC % 0 Reactive Lymphocytes RARE Sodium 137 Potassium 3.1 L Chloride 110 H Carbon Dioxide 22.0 Anion Gap 5 BUN 11 Creatinine 0.64 Estim Creat Clear Calc 77.22 Est GFR (MDRD) Af Amer 128 Est GFR (MDRD) Non-Af 106 BUN/Creatinine Ratio 17.3 Glucose 99 Calcium 7.8 L Total Bilirubin 0.20 Direct Bilirubin 0.07 AST 81 H ALT 92 H Alkaline Phosphatase 189 H Total Protein 6.8 Albumin 2.6 L Globulin 4.2 Lipase 154 Discharge Plan Triage Chief Complaint: Shortness of Breath ED Provider: Teto Gardner Dx/Rx/DC Orders Clinical Impression: Epigastric abdominal pain, Hypokalemia Instructions: ED Abdominal Pain Unkn Cause Fem Prescriptions: New ondansetron [ondansetron] 4 MG tablet 4 mg PO Q8H PRN PRN (Reason: Nausea) Qty: 10 RF: 0 No Action topiramate 50 mg tablet 50 mg PO BID RF: 0 oxycodone-acetaminophen [Percocet] 7.5-325 mg tablet 1 tab PO Q6H PRN (Reason: pain) RF: 0 naproxen sodium 220 mg tablet 220 mg PO BID PRN (Reason: Pain Or Fever) RF: 0 ibuprofen 200 mg tablet 200 mg PO Q6H PRN (Reason: Pain Or Fever) RF: 0 cyclobenzaprine 10 MG tablet 10 mg PO TID PRN PRN (Reason: Spasms) RF: 0 omeprazole 20 MG tablet,disintegrat, delay rel 20 mg PO BID RF: 0 Primary Care Provider: Care Physician,No Primary Referrals: Care Physician,No Primary [Primary Care Provider] - 3-5 Days Disposition Disposition: Home, Self Care
[2021-07-01] MEDS: Acetaminophen 500 MG Tablet 1000 MG PO (09:23)
[2021-07-01 10:06] LABS: AST(SGOT) 81 U/L (15-37); Alanine Aminotransfer ALT/SGPT 92 U/L (13-56); Albumin, Serum 2.6 g/dL (3.2-5.0); Alkaline Phosphatase 189 U/L (45-117); Bilirubin, Direct 0.07 mg/dL (0.00-0.30); Globulin 4.2 g/dL (2.2-4.2); Lipase 154 U/L (73-393); Protein, Total 6.8 g/dL (6.4-8.2)
[2021-07-01 10:47] VITALS: BP 114/76; PULSE 99; RESP 16; O2SAT 97
== END 2021-07-01 11:03 | disposition home or self-care (01) ==
PROVIDERS: Emergency Provider Emergency Medicine
DX: R10.13 Epigastric pain (principal); E87.6 Hypokalemia; U07.1 COVID-19; R19.7 Diarrhea, unspecified; R11.2 Nausea with vomiting, unspecified; G62.9 Polyneuropathy, unspecified; M19.90 Unspecified osteoarthritis, unspecified site; K21.9 Gastro-esophageal reflux disease without esophagitis; F17.210 Nicotine dependence, cigarettes, uncomplicated; Z79.899 Other long term (current) drug therapy
CPT/HCPCS: 80048; 80076; 83690; 85025; 96360; 99284; J7040

== ENCOUNTER 2023-10-29 12:02 | Emergency (ER) | payer OTHER, SELFPAY ==
[2023-10-29 12:04] VITALS: BP 122/87; PULSE 116; RESP 14; TEMP 36.6; O2SAT 98; BMI 26.9
== END 2023-10-29 12:30 | disposition left against medical advice (07) ==
LOC: ED 12:37
DX: R69 Illness, unspecified (principal); Z53.21 Procedure and treatment not carried out due to patient leaving prior to being seen by health care provider
CPT/HCPCS: 93005

== ENCOUNTER 2024-07-28 11:17 | Emergency (ER) | payer OTHER, SELFPAY ==
[2024-07-28 11:18] VITALS: BP 122/92; PULSE 122; RESP 20; TEMP 36.2; O2SAT 98; BMI 26.2
[2024-07-28 11:19] VITALS: BP 122/92; PULSE 122; RESP 20; TEMP 36.2; O2SAT 98
--- NOTE | 2024-07-28 11:23 | ED.VIS.FEGU ---
HPI HPI - Female History of Present Illness Chief Complaint: Complaint [facility] Medical History (Updated 07/09/21 @ 00:01 by Randee Morfin) Inappropriate sinus tachycardia Neuropathy GERD (gastroesophageal reflux disease) Frequent headaches Back problem Arthritis Tobacco abuse Home Medications ?Medication ?Instructions ?Recorded ?Last Taken ?Type cyclobenzaprine 10 mg tablet 10 mg PO TID PRN PRN Spasms 03/28/19 Unknown History omeprazole 20 mg delayed 20 mg PO BID 03/28/19 06/23/19 History release,disintegrating tablet oxycodone-acetaminophen 7.5 mg-325 1 tab PO Q6H PRN pain 05/10/19 Unknown History mg tablet (Percocet) topiramate 50 mg tablet 50 mg PO BID 05/10/19 Unknown History ibuprofen 200 mg tablet 200 mg PO Q6H PRN Pain Or Fever 05/16/19 Unknown History naproxen sodium 220 mg tablet 220 mg PO BID PRN Pain Or Fever 05/16/19 Unknown History ondansetron 4 mg disintegrating 4 mg PO Q8H PRN PRN Nausea #10 tabs 07/01/21 Unknown Rx tablet Allergy/AdvReac Type Severity Reaction Status Date / Time hydrocodone AdvReac Upset Verified 10/29/23 12:03 Stomach morphine AdvReac Itching Verified 10/29/23 12:03 Family History Father Heart disease [place] Cancer Kidney & Bladder Skin cancer Other Arthritis High cholesterol Hypertension Myocardial infarction Surgical History History of neck surgery History of hysterectomy History of cholecystectomy History of appendectomy Social History Smoking Status: Current every day smoker tobacco type: cigarettes and smokeless tobacco Tobacco: How many years used: 10 alcohol intake: never substance use type: does not use caffeine: Yes Type: coffee Number of servings: 2 what type of physical activity do you participate in: none EXAM Physical Exam Const Vital Signs: 07/28/24 11:18 07/28/24 11:19 07/28/24 12:19 Temperature 97.2 F L 97.2 F L 97.8 F Temperature Source Temporal Temporal Temporal Pulse Rate 122 H 122 H 108 H Respiratory Rate 20 H 20 H 17 Blood Pressure 122/92 H 122/92 H 131/85 H Blood Pressure Mean 102 102 100 Pulse Ox 98 98 97 Oxygen Delivery Method Room Air Room Air Room Air 07/28/24 13:00 07/28/24 13:18 07/28/24 13:29 Temperature 98 F 98.2 F Temperature Source Temporal Pulse Rate 106 H 111 H 111 H Respiratory Rate 16 18 18 Blood Pressure 117/83 H 117/83 H 117/83 H Blood Pressure Mean 94 94 94 Pulse Ox 98 96 96 Oxygen Delivery Method Room Air [facility] [place] Narrative Medical decision making narrative: HISTORY OF PRESENT ILLNESS: 49-year-old female presents with concern for ongoing UTI symptoms. No she is currently on oral antibiotics. She states is yellow vaginal discharge and diffuse weakness. She thinks something more is going on. She further states baseline heart rate is usually 107-110. Notes 4 weeks of urinary complaints. No she recently finished a 5-day course of nitrofurantoin. She notes vaginal discharge for last 2 weeks. She has not been sexually active for the last year. She is not concerned with STDs. Notes she is had hysterectomy, appendectomy and her gallbladder out. She notes nausea but no vomiting. She notes a metallic taste in her mouth. She denies chest pain or shortness of breath. Denies cough. Denies fever. She endorses chills. REVIEW OF SYSTEMS: Pertinent positives: Yellow vaginal discharge, weakness Pertinent negatives: vomiting, fever, dysuria PHYSICAL EXAM: Nursing triage notes reviewed, Vital signs reviewed Constitutional: please see [facility] HENT: MMM Eyes: Pupils equal round and reactive to light, Extraocular muscles intact Neck: No stridor, no JVD, full neck ROM Lungs: Clear to auscultation, No wheezing or rales. No increased work of breathing, no conversational dyspnea, no accessory muscle use, no nasal flaring. No respiratory distress noted Heart: Regular rate and rhythm, No murmurs, No rubs and No gallops, 2+ distal pulses (radial, femoral, posterior tibial) in all extremities Abdomen: Soft, there is no tenderness, rigidity, rebound or guarding, no obvious peritoneal signs, no palpable pulsatile abdominal masses, no auscultated abdominal bruit : No CVAT, pelvic exam performed practice representative in room Extremities: No edema Neuro: No new focal neurological deficits, cranial nerves II through XII intact, 5/5 strength in all present extremities. Intact sensation to light touch in all present extremities, 2+ reflexes bilateral patella tendons. Skin: No rash or lesions noted MEDICAL DECISION MAKING: Chief Complaint: Vaginal discharge External records reviewed: Reviewed prior imaging studies Factors affecting care: Palpitations, baseline tachycardia, GERD, Social determinants of health: Tobacco abuse History obtained from others: none Consults: none MDM Narrative: Patient was initially tachycardic otherwise hemodynamically stable afebrile and nontoxic-appearing. Abdominal exam was overall benign with no peritoneal signs I considered the following differential diagnosis: AAA, small bowel obstruction, abdominal perforation, appendicitis, pancreatitis, hepatobiliary pathology (acute cholecystitis), mesenteric ischemia, pathology (ie nephrolithiasis, pyelonephritis). Thyroid dysfunction. While considered pathology including ovarian torsion, tubo-ovarian abscess, pelvic inflammatory disease the patient did not have a uterus or ovaries secondary to prior hysterectomy, bilateral oophorectomy which makes these diagnoses unlikely. ALL IMAGES (IF OBTAINED) HAVE BEEN PERSONALLY REVIEWED AND INTERPRETED BY MYSELF. CBC without leukocytosis, severe anemia, no thrombocytopenia. CMP without evidence of acute kidney injury, significant electrolyte abnormality, anion gap to suggest end organ hypo-perfusion, no evidence of metabolic acidosis with a normal bicarbonate, no evidence of hepatobiliary obstructive pathology. Lipase is wnl indicating no pancreatic inflammation. Thyroid studies normal Urinalysis shows no evidence of urinary inflammation suggestive of UTI CT scan abdomen pelvis showed no acute intra-abdominal pathology Lactate is wnl indicating no end-organ hypoperfusion and/or hypoxia. On reevaluation heart rate improved to 106, abdomen remained benign. No apparent life-limiting etiology could be ascertained based on patient's symptoms. She is given close PCP follow-up. The patient and/or family, caregivers express understanding. The patient and/or family, caregivers agrees with the plan. Shared decision making: I will have a discussion with the patient and or visitors regarding risk/benefits of further testing or admission. They will be made aware of of the risk/benefits inherent in this decision they will be given the opportunity to voice understanding. Total critical care time today provided was at least 0 minutes. This excludes separately billable procedures. Critical care time (if documented) is secondary to the patient having high probability of clinically significant/life threatening deterioration in the patient's condition which required my urgent intervention. Impression: 1. Vaginal discharge 2. History of hysterectomy Dispo: Discharge home This note was generated with [employer] dictation software. It may contain incorrect words, spelling, and punctuation that were not noted in review of the chart prior to signing. Lab Data Labs: Laboratory Results - last 24 hr 07/28/24 07/28/24 11:46 12:00 WBC 9.3 RBC 4.56 Hgb 15.1 H Hct 44.5 MCV 97.6 MCH 33.1 H MCHC 33.9 RDW Std Deviation 45.0 H RDW Coeff of Stacey 12.4 Plt Count 449 MPV 8.5 Sodium 142 Potassium 4.1 Chloride 115 H Carbon Dioxide 24.0 Anion Gap 4 L BUN 11 Creatinine 0.87 Estim Creat Clear Calc 62.38 Est GFR (MDRD) Af Amer 88 Est GFR (MDRD) Non-Af 73 BUN/Creatinine Ratio 12.7 Glucose 93 Lactic Acid 1.2 Calcium 8.9 Total Bilirubin 0.20 AST 25 ALT 32 Alkaline Phosphatase 117 Total Protein 7.0 Albumin 3.5 Globulin 3.5 Albumin/Globulin Ratio 1.0 Lipase 29 TSH 1.080 Free T4 0.99 Free T3 pg/dL 2.6 Urine Color Yellow Urine Clarity Clear Urine pH 7.0 Ur Specific Barnum 1.005 Urine Protein Negative Urine Glucose (UA) Normal Urine Ketones Negative Urine Occult Blood 10 H Urine Nitrite Negative Urine Bilirubin Negative Urine Urobilinogen Normal Ur Leukocyte Esterase 25 H Urine RBC 0 SEEN Urine WBC 0 SEEN Ur Squamous Epith Cells 0 SEEN Urine Bacteria 0 SEEN Urine Mucus 0 SEEN Radiography Diagnostic Testing: Clinical Impression(s) from Imaging Studies Abdomen/Pelvis CT 07/28/24 12:00 IMPRESSION: No acute intra-abdominal process identified. Small left ovarian cyst. Decreased size of pulmonary nodules in the lung bases. Electronically Signed: Evon Morales MD at 12:39 EST , Discharge Plan Triage Chief Complaint: Complaint ED Provider: Keegan Mariee Dx/Rx/DC Orders Instructions: ED Ovarian Cyst, ED Pelvic Pain, Unknown Cause Prescriptions: No Action topiramate 50 mg tablet 50 mg PO BID oxycodone-acetaminophen [Percocet] 7.5-325 mg tablet 1 tab PO Q6H PRN (Reason: pain) naproxen sodium 220 mg tablet 220 mg PO BID PRN (Reason: Pain Or Fever) ibuprofen 200 mg tablet 200 mg PO Q6H PRN (Reason: Pain Or Fever) cyclobenzaprine 10 MG tablet 10 mg PO TID PRN PRN (Reason: Spasms) omeprazole 20 MG tablet,disintegrat, delay rel 20 mg PO BID ondansetron [ondansetron] 4 MG tablet 4 mg PO Q8H PRN PRN (Reason: Nausea) Qty: 10 0RF Primary Care Provider: Care Physician,No Primary Referrals: Jeff Kat MD [Med Staff - Active Staff] - Activity Restrictions/Additional Instructions: Thank you for trusting us with your care today! Please take Tylenol (2 pills, 650 mg), ibuprofen (2 pills, 400 mg) every 6 hours as needed for pain and fever control. Please return to the emergency department if your symptoms change or worsen. Please follow with your primary care physician for further outpatient evaluation and management. Print Language: [place] Disposition Disposition: Home, Self Care Discharge Date/Time: 07/28/24 13:29
--- NOTE | 2024-07-28 11:34 | EKG12_ITS ---
Test Reason : COMPLAINT Blood Pressure : */* mmHG Vent. Rate : 94 BPM Atrial Rate : 94 BPM P-R Int : 132 ms QRS Dur : 82 ms QT Int : 382 ms P-R-T Axes : 62 -28 51 degrees QTcB Int : 477 ms Normal sinus rhythm Normal ECG Confirmed by JAHAIRA AMADO, FRED ([id number]), editor publications MIKE SMITH ([id number]) on 08/03/2024 1:22:48 P M Referred By: Confirmed By: FRED CAMPO MD
[2024-07-28] MEDS: Ondansetron 4 MG/2 ML Vial IV (11:49)
[2024-07-28 11:54] LABS: Hematocrit 44.5 % (37-47); Hemoglobin 15.1 g/dL (12.0-15.0); Mean Corp Hgb Conc 33.9 g/dL (32-36); Mean Corpuscular Hgb 33.1 pg (27.0-32.0); Mean Corpuscular Volume 97.6 fL (81-99); Mean Platelet Vol. 8.5 fl (6.2-12.0); Platelet Count 449 K/mm3 (150-450); RBC Distribution Width CV 12.4 % (11.6-14.6); Red Blood Count 4.56 M/mm3 (4.2-5.4); White Blood Count 9.3 K/mm3 (4.4-11.0)
--- NOTE | 2024-07-28 12:00 | CT_ITS ---
HISTORY: abdominal pain, vaginal discharge. TECHNIQUE: Helically acquired images were obtained of the abdomen and pelvis after the intravenous administration of 100 mL Isovue-370. A radiation dose optimization technique was used for this scan. 405 images. COMPARISON: 12/21/2015. FINDINGS: LOWER CHEST: Nodules measuring up 4 mm, previously measuring up to 6 mm. Mild scarring in the lung bases. BOWEL: Bowel nondilated. Appendix not visualized. No focal pericolonic inflammatory change observed. PERITONEUM: No significant ascites. LIVER: No enhancing mass. GALLBLADDER/BILIARY TREE: Absent gallbladder. SPLEEN/PANCREAS/ADRENAL GLANDS: Homogeneous and nonenlarged. KIDNEYS: No hydronephrosis. 1 cm simple cyst in the left kidney; follow-up not indicated. VESSELS: No abdominal aortic aneurysm. PELVIC ORGANS: Absent uterus. 2 cm left pelvic cyst. BONES: Intact. CT/Abdomen/Pelvis W IV Cont ONLY IMPRESSION: No acute intra-abdominal process identified. Small left ovarian cyst. Decreased size of pulmonary nodules in the lung bases. Electronically Signed: Evon Morales MD at 12:39 EST ,
[2024-07-28 12:04] LABS: Bacteria 0 SEEN /hpf (None Seen); Mucous, Urine 0 SEEN /hpf (<or=2+); Red Blood Cells-Urine 0 SEEN /hpf (0-5); Squamous Epithelial Cells - UA 0 SEEN /hpf (5-10); White Blood Cells 0 SEEN /hpf (0-5)
[2024-07-28 12:05] LABS: Color, Urine Yellow (Yellow); Glucose, Dipstick Normal (Normal); Ketone-Dipstick Negative (Negative); Leukocyte Esterase-Dipstick 25 /ul (Negative); Nitrite-Dipstick Negative (Negative); Occult Blood-Urine 10 /ul (Negative); Protein-Dipstick Negative (Negative); Specific Gravity, Urine 1.005 (1.002-1.030); Urine Bilirubin Dipstick Negative (Negative); Urine Clarity Clear (Clear); Urine Urobilinogen Normal (Normal)
[2024-07-28 12:19] VITALS: BP 131/85; PULSE 108; RESP 17; TEMP 36.6; O2SAT 97
[2024-07-28 12:24] LABS: Lactic Acid 1.2 mmol/L (0.4-1.9)
[2024-07-28 12:30] LABS: AST(SGOT) 25 U/L (15-37); Alanine Aminotransfer ALT/SGPT 32 U/L (13-56); Albumin, Serum 3.5 g/dL (3.2-5.0); Alkaline Phosphatase 117 U/L (45-117); Anion Gap 4 (5-15); BUN 11 mg/dL (7-18); BUN/Creat Ratio 12.7 RATIO (10-20); Calcium,Total 8.9 mg/dL (8.5-10.1); Chloride 115 mmol/L (98-107); Creatinine, Serum 0.87 mg/dL (0.55-1.02); EST Glomerular Filtration Rate 73 mL/min (>60); Est Glom Filt Rate - Afr Amer 88 mL/min (>60); Estimated Creatinine Clearance 62.38 ml/min; Free T3 2.6 pg/mL (2.18-3.98); Globulin 3.5 g/dL (2.2-4.2); Glucose 93 mg/dL (74-106); Lipase 29 U/L (13-75); Potassium 4.1 mmol/L (3.5-5.1); Sodium Level 142 mmol/L (136-145); T4 Free Direct 0.99 ng/dL (0.76-1.46)
[2024-07-28 13:00] VITALS: BP 117/83; PULSE 106; RESP 16; TEMP 36.6; O2SAT 98
[2024-07-28 13:18] VITALS: BP 117/83; PULSE 111; RESP 18; O2SAT 96
[2024-07-28 13:29] VITALS: BP 117/83; PULSE 111; RESP 18; TEMP 36.8; O2SAT 96
== END 2024-07-28 13:29 | disposition home or self-care (01) ==
PROVIDERS: Emergency Provider Emergency Medicine; Visit Provider Emergency Medicine
DX: N89.8 Other specified noninflammatory disorders of vagina (principal); R00.2 Palpitations; K21.9 Gastro-esophageal reflux disease without esophagitis; Z79.899 Other long term (current) drug therapy; F17.210 Nicotine dependence, cigarettes, uncomplicated; Z90.710 Acquired absence of both cervix and uterus
CPT/HCPCS: 74177; 80053; 81001; 83605; 83690; 84439; 84443; 84481; 85027; 93005; 96374; 99284; Q9967; A4216; J2405